=== PATIENT | male | born 1995 | race Caucasian/White ===

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

== ENCOUNTER 2019-04-19 15:08 | Emergency (ER) | payer OTHER ==
[2019-04-19 15:34] VITALS: BP 138/81
--- NOTE | 2019-04-19 16:06 | ED Physician Documentation ---
PD HPI URI - Stated complaint Stated Complaint: COUGH,ARIZMENDI,NAUSEA - Chief complaint Chief Complaint: Heent - History obtained from History obtained from: Patient - History of Present Illness Timing - onset: Today Timing duration: Days (1) Timing details: Abrupt onset (This gentleman just started feeling sick today with some chills aches, some headache and cough. He does feel congested nose and sinuses. He had not had any recent travel. He has not had any exposure to people that been traveling. He does not have any underlying lung disease. 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 No: Dyspnea, NVD Contributing factors: COPD / asthma. No: Sick contact, Travel, Immunocompromised Similar symptoms before: Has not had sx before Review of Systems Constitutional: reports: Fever, Chills, Myalgias Nose: reports: Rhinorrhea / runny nose, Congestion Respiratory: reports: Cough GI: denies: Vomiting, Diarrhea Neurologic: reports: Generalized weakness. denies: Near syncope, Altered mental status PD PAST MEDICAL HISTORY - Past Medical History Cardiovascular: None Respiratory: None Endocrine/Autoimmune: None GI: None : None HEENT: None Psych: None Musculoskeletal: None Derm: None - Past Surgical History Past Surgical History: No - Present Medications Home Medications: Ambulatory Orders Medication Instructions Recorded Confirmed Ibuprofen [Motrin] 600 mg PO TID #30 tab 12/04/16 Ondansetron Odt [Zofran] 4 mg TL Q6H PRN #15 tablet 12/04/16 Oxycodone HCl/Acetaminophen 1 each PO Q6H PRN #20 tablet 12/04/16 [Percocet 5-325 mg Tablet] Benzonatate [Tessalon Perle] 100 - 200 mg PO TID PRN #30 capsule 04/19/19 Ibuprofen [Motrin] 600 mg PO TID PRN #25 tab 04/19/19 dexAMETHasone [Decadron] 4 mg PO DAILY #5 tablet 04/19/19 - Allergies Allergies/Adverse Reactions: Allergies Allergy/AdvReac Type Severity Reaction Status Date / Time No Known Drug Allergies Allergy Verified 12/04/16 07:34 - Social History Does the pt smoke?: No Smoking Status: Never smoker Does the pt drink ETOH?: No Does the pt have substance abuse?: No - Immunizations Immunizations are current?: Yes PD ED PE NORMAL - Vitals Vital signs reviewed: Yes - General General: Alert and oriented X 3, No acute distress, Well developed/nourished - HEENT HEENT: Ears normal, Moist mucous membranes, Pharynx benign - Neck Neck: Supple, no meningeal sign, No adenopathy - Cardiac Cardiac: RRR, No murmur - Respiratory Respiratory: Clear bilaterally - Abdomen Abdomen: Soft, Non tender - Derm Derm: Normal color, Warm and dry - Neuro Neuro: Alert and oriented X 3, No motor deficit, Normal speech Results - Vitals Vitals: Vital Signs - 24 hr 04/19/19 04/19/19 15:20 16:31 Temperature 37.1 C Heart Rate 88 80 Respiratory 18 16 Rate Blood Pressure 138/81 H 138/81 H O2 Saturation 95 96 Oxygen O2 Source Room air Departure - Departure Disposition: 01 Home, Self Care Clinical Impression: Upper respiratory infection Qualifiers: URI type: unspecified URI Qualified Code(s): J06.9 - Acute upper respiratory infection, unspecified Condition: Stable Record reviewed to determine appropriate education?: Yes Instructions: ED Upper Resp Infec No Abx Tx Follow-Up: OLAF DIAZ DO [Primary Care Provider] - Prescriptions: Benzonatate [Tessalon Perle] 100 - 200 mg PO TID PRN #30 capsule PRN Reason: Cough dexAMETHasone [Decadron] 4 mg PO DAILY #5 tablet Ibuprofen [Motrin] 600 mg PO TID PRN #25 tab PRN Reason: Pain Comments: Stay well-hydrated. Ibuprofen 3 times a day. Add Tylenol if needed for fevers and pains. Return if worsening over the next few days. At this point presume a more common viral illness or flulike. Return if worsening. Meanwhile stay home and rest for the next few days. Benzonatate if needed for cough. Decadron for inflammation as directed. Forms: Activity restrictions Discharge Date/Time: 04/19/19 16:34
[2019-04-19] MEDS ORDERED: IBUPROFEN 600 MG TABLET PO STA (16:15)
[2019-04-19] MEDS ORDERED: DEXAMETHASONE 10 MG/ML VIAL PO STA (16:15)
[2019-04-19] MEDS ORDERED: BENZONATATE 100 MG CAPSULE PO STA (16:15)
[2019-04-19] MEDS ORDERED: CHERRY SYRUP 10 ML UDC PO ONE (16:15)
[2019-04-19] MEDS ORDERED: CETIRIZINE 10 MG TABLET PO STA (16:16)
[2019-04-19] MEDS ORDERED: ONDANSETRON ODT 4 MG TABLET TL STA (16:17)
== END 2019-04-19 16:34 | disposition home or self-care (01) ==
LOC: ED 15:08
DX: J06.9 Acute upper respiratory infection, unspecified (principal)
CPT/HCPCS: 99283; 99284; A9270; Q0162